=== PATIENT | male | born 2000 | race Hispanic/Latino ===

== ENCOUNTER 2021-02-20 23:51 | Emergency (ER) | payer OTHER, BC ==
[2021-02-21] MEDS ORDERED: Boostrix 0.5 ML (Tdap) VIAL ONE (00:16)
[2021-02-21] MEDS ORDERED: Ketorolac Tromethamine 30 MG/ML VIAL ONE (01:02)
[2021-02-21] MEDS ORDERED: HYDROcodone/Acetaminophen 10/325 mg Tablet ONE (01:26)
[2021-02-21] MEDS ORDERED: Lidocaine 1% w/Epinephrine 1:100K 20 ML VIAL ONE (01:30)
== END 2021-02-21 02:23 | disposition home or self-care (01) ==
LOC: CSHERS 23:51
DX: S62.292A Other fracture of first metacarpal bone, left hand, initial encounter for closed fracture (principal); S01.01XA Laceration without foreign body of scalp, initial encounter; E10.9 Type 1 diabetes mellitus without complications; V03.99XA Pedestrian with other conveyance injured in collision with car, pick-up truck or van, unspecified whether traffic or nontraffic accident, initial encounter; Z23 Encounter for immunization
CPT/HCPCS: 12002; 26600; 70450; 72125; 90715; G0390; J1885

== ENCOUNTER 2021-03-02 10:20 | Emergency (ER) | payer BC | END 2021-03-02 11:38 | disposition home or self-care (01) | LOC: CSHERS 10:20 | DX: S01.01XD Laceration without foreign body of scalp, subsequent encounter (principal); E10.9 Type 1 diabetes mellitus without complications ==